=== PATIENT | male | born 1980 | race Caucasian/White ===

== ENCOUNTER 2017-04-27 18:32 | Emergency (ER) | payer SELFPAY ==
[~2017-04-27] VITALS: Ht 175.3 cm; Wt 113.8 kg
[2017-04-27 21:18] LABS: BASOPHIL % 0.4 % (0-2); CALCIUM 9.2 mg/dL (8.5-10.1); CARBON DIOXIDE 33.6 mmol/L (21-32); CHLORIDE SERUM 104 mmol/L (98-107); CREATININE SERUM 0.9 mg/dL (0.7-1.3); GFR1 > 60 mL/min; GLUCOSE SERUM 101 mg/dL (74-106); PLATELET COUNT 298 x10^3mcL (130-400); POTASSIUM SERUM 4.4 mmol/L (3.5-5.1); RED CELL DISTRIBUTION WIDTH 13.6 % (11.5-14.5); SODIUM SERUM 141 mmol/L (136-145)
[2017-04-27 22:52] VITALS: BP 138/96
== END 2017-04-27 22:52 | disposition home or self-care (01) ==
LOC: ED 18:32
PROVIDERS: Emergency Medicine Emergency Medical Services
DX: F41.9 Anxiety disorder, unspecified (principal)
CPT/HCPCS: 36415